=== PATIENT | male | born 1940 | race African-American/Black ===

== ENCOUNTER 2021-10-27 20:07 | Emergency (ER) | payer SELFPAY ==
[~2021-10-27] VITALS: Ht 175.3 cm; Wt 79.0 kg
[2021-10-27 22:28] LABS: BASOPHILS % 1.1 % (0.0-2.0); EOSINOPHILS % 4.6 % (0.0-5.0); HEMATOCRIT. 36.4 % (42.0-52.0); HEMOGLOBIN. 11.8 g/dL (14.0-18.0); LYMPHOCYTES % 28.4 % (20.0-50.0); MEAN CORPUSCULAR VOLUME 95.2 fL (80.0-94.0); MEAN PLATELET VOLUME 7.3 fl (7.4-10.4); MONOCYTES % 9.1 % (2.0-8.0); NEUTROPHILS % 56.8 % (40.0-76.0); PLATELET 263 x1000/uL (130-400); RED BLOOD CELL COUNT 3.82 mill/uL (4.7-6.1); RED CELL DISTRIBUTION WIDTH 13.8 % (11.6-14.6)
[2021-10-27 22:29] LABS: CHLORIDE 107 mEq/L (98-107)
[2021-10-27 22:40] LABS: ETHANOL BLOOD < 10 mg/dL
[2021-10-27 23:15] VITALS: BP 162/82
== END 2021-10-28 02:31 | disposition left against medical advice (07) ==
LOC: ER 20:07 → CANBEDREQ 10-28 06:38
DX: R55 Syncope and collapse (principal); G20 Parkinson's disease; I10 Essential (primary) hypertension; Z86.73 Personal history of transient ischemic attack (TIA), and cerebral infarction without residual deficits
CPT/HCPCS: 36415; 71045; 80053; 80320; 83880; 84484; 85025; 93005; 99285; G0480

== ENCOUNTER 2024-10-01 16:55 | Inpatient (IN) | payer MEDICARE, OTHER ==
[~2024-10-01] VITALS: Ht 165.1 cm; Wt 68.0 kg
[2024-10-01] VITALS (8 sets, daily range): BP systolic 113–124; BP diastolic 67–70; PULSE 80–96; RESP 16–27; TEMP 36.6; O2SAT 97–100
[~2024-10-01 16:55] MED LIST: ETOMIDATE 2MG/ML 10ML VIAL IV ONE
[2024-10-01] MEDS ORDERED: METHYLPREDNISOLONE 40MG/ML INJ IV ONE (17:15)
[2024-10-01 17:34] LABS: BASOPHILS % 0.5 % (0.0-2.0); EOSINOPHILS % 14.5 % (0.0-5.0); LYMPHOCYTES % 45.2 % (20.0-50.0); MEAN CORPUSCULAR HEMOGLOBIN 27.2 pg (28.0-32.0); MEAN CORPUSCULAR HGB CONC 31.1 g/dL (31.0-37.0); MEAN CORPUSCULAR VOLUME 87.3 fL (80.0-94.0); MEAN PLATELET VOLUME 6.8 fl (7.4-10.4); MONOCYTES % 4.5 % (2.0-8.0); NEUTROPHILS % 35.3 % (40.0-76.0); PLATELET 414 x1000/uL (130-400); RED BLOOD CELL COUNT 2.58 mill/uL (4.7-6.1); RED CELL DISTRIBUTION WIDTH 17.5 % (11.6-14.6); WHITE BLOOD COUNT 6.9 x1000/uL (4.5-11.0)
[2024-10-01 17:35] LABS: CHLORIDE 92 mEq/L (98-107); INR 1.1; POTASSIUM 5.3 mEq/L (3.5-5.1); PROTHROMBIN TIME 11.6 sec (9.6-11.0)
[2024-10-01 17:36] LABS: CARBON DIOXIDE 18 mEq/L (21-32)
[2024-10-01 17:37] LABS: CALCIUM 7.6 mg/dL (8.7-10.4)
[2024-10-01 17:41] LABS: CREATININE 1.4 mg/dL (0.6-1.3); GLUCOSE 109 mg/dL (70-105)
[2024-10-01 17:42] LABS: UREA NITROGEN BLOOD 37 mg/dL (9-23)
[2024-10-01 17:43] LABS: ALANINE AMINOTRANSFERASE 12 IU/L (10-49); ALBUMIN 2.9 g/dL (3.2-4.8); ASPARTATE AMINOTRANSFERASE 61 IU/L (<34); TROPONIN I HIGH SENSITIVITY 11 ng/L (3.0-53)
[2024-10-01 17:44] LABS: BILIRUBIN DIRECT 0.1 mg/dL (<=3.0); BILIRUBIN TOTAL 0.4 mg/dL (0.1-1.0); PROTEIN TOTAL 6.1 g/dL (6.0-8.3)
[2024-10-01 17:46] LABS: SODIUM 117 mEq/L (136-145)
[2024-10-01] MEDS: METHYLPREDNISOLONE SOD SUCC 125MG/2ML (ACT-O-VIAL) IV NR (17:48)
[2024-10-01] MEDS: VANCOMYCIN 1G PREMIX 200 ML IV STA (17:48)
[2024-10-01] MEDS: MAGNESIUM 2 G PREMIX 50 ML IV ONE (17:48)
[2024-10-01] MEDS: SODIUM CHLORIDE 0.9% 1,000 ML IV ONE ×2 (17:49→20:53)
[2024-10-01 17:52] LABS: HEMATOCRIT. 22.5 % (42.0-52.0)
[2024-10-01] MEDS: PROPOFOL 10MG/ML 100ML 100 ML IV SCH (17:54)
[2024-10-01] MEDS: IPRATROPIUM BROMIDE (0.02%) 0.5MG/2.5ML NEB HHN STA (18:14)
[2024-10-01] MEDS: ALBUTEROL (0.083%) 2.5MG/3ML NEB HHN STA (18:14)
[2024-10-01 18:33] LABS: BG BASE EXCESS -7.7 mmol/L (-2.0-3.0); BG CARBOXYHEMOGLOBIN 1.4 % (0.5-1.5); BG DEOXYHEMOGLOBIN 3.7 % (0.0-5.0); BG FRACTION INSPIRED OXYGEN 100; BG METHEMOGLOBIN 0.2 % (0.5-1.5); BG OXYGEN SATURATION 96.2 % (94.0-98.0); BG OXYHEMOGLOBIN 94.7 % (94.0-98.0); BG PCO2 30.8 mmHg (35.0-48.0); BG PO2 90.4 mmHg (83.0-108.0); BG SAMPLE SITE RIGHT BRACHIAL; BG VENT MODE VENT - AC
[2024-10-01 20:38] LABS: TROPONIN I HIGH SENSITIVITY 181 ng/L (3.0-53)
[2024-10-01] MEDS ORDERED: GUAIFENESIN 200MG/10ML SUGAR FREE UDC PO PRN (21:15)
[2024-10-01] MEDS ORDERED: SODIUM CHLORIDE 0.9% 1,000 ML IV SCH (21:15)
[2024-10-01] MEDS ORDERED: MAGNESIUM/ALUMINUM HYDROXIDE/SIMETHICONE 30ML UDC PO PRN (21:15)
[2024-10-01] MEDS ORDERED: DOCUSATE SODIUM 100MG CAPSULE PO PRN (21:15)
[2024-10-01] MEDS ORDERED: IPRATROPIUM/ALBUTEROL 0.5-3(2.5)MG/3ML NEB HHN PRN ×2 (21:15→21:30)
[2024-10-01 21:32] LABS: CLARITY URINE CLEAR (CLEAR); COLOR URINE YELLOW (YELLOW); GLUCOSE URINE NEGATIVE (NEGATIVE); KETONES URINE NEGATIVE (NEGATIVE); LEUKOCYTE ESTERASE URINE NEGATIVE (NEGATIVE); NITRITE URINE NEGATIVE (NEGATIVE); OCCULT BLOOD URINE NEGATIVE (NEGATIVE); PROTEIN URINE NEGATIVE (NEGATIVE); SPECIFIC GRAVITY URINE 1.014 (1.005-1.030)
[2024-10-01] MEDS ORDERED: MEMA5TAB16 PO (21:36)
[2024-10-01] MEDS ORDERED: NOREPINEPHRINE 8MG/250ML PMX 250 ML IV PRN (21:45)
[2024-10-01] MEDS ORDERED: PROPOFOL 10MG/ML 100ML 100 ML IV PRN (21:45)
[2024-10-01 21:46] LABS: *AMPHETAMINES SCREEN URINE NEGATIVE (NEGATIVE); *BARBITURATES SCREEN URINE NEGATIVE (NEGATIVE); *BENZODIAZEPINES SCREEN URINE NEGATIVE (NEGATIVE); *COCAINE SCREEN URINE NEGATIVE (NEGATIVE)
[2024-10-01 21:47] LABS: CANNABINOID URINE SCREEN NEGATIVE (NEGATIVE); ECSTASY MDMA SCREEN URINE NEGATIVE (NEGATIVE); METHADONE URINE SCREEN NEGATIVE (NEGATIVE); OPIATES URINE SCREEN NEGATIVE (NEGATIVE); PHENCYCLIDINE URINE SCREEN NEGATIVE (NEGATIVE)
[2024-10-01 22:03] LABS: PHOSPHORUS 3.6 mg/dL (2.5-4.9)
[2024-10-01] MEDS ORDERED: FENTANYL 2500MCG/250ML PMX 250 ML IV PRN (22:30)
[2024-10-01 22:48] LABS: IRON 18 ug/dL (65-175)
[2024-10-01 22:51] LABS: TOTAL IRON BINDING CAPACITY 215 ug/dl (250-425)
[2024-10-01] MEDS: FENTANYL 2500MCG/250ML PMX 250 ML IV PRN (23:58)
[2024-10-02] VITALS (86 sets, daily range): BP systolic 117–166; BP diastolic 58–81; PULSE 55–90; RESP 10–24; TEMP 36.4–36.7; O2SAT 97–100
[2024-10-02 00:18] LABS: HEMATOCRIT 24.6 % (42.0-52.0)
[2024-10-02] MEDS: PANTOPRAZOLE SODIUM 40 MG/VIAL IV SCH (00:18)
[2024-10-02] MEDS: METHYLPREDNISOLONE SOD SUCC 40MG/ML (ACT-O-VIAL) IV SCH (00:18)
[2024-10-02] MEDS: CARBIDOPA/LEVODOPA 25/100MG TABLET GT SCH (00:19)
[2024-10-02] MEDS: VANCOMYCIN 500MG PREMIX 100 ML IV NR (00:19)
[2024-10-02] MEDS: SODIUM ZIRCONIUM CYCLOSILICATE 10GM/PACKET GT NR (00:19)
[2024-10-02] MEDS: AZTREONAM 2 GM in DEXT 5% WATER 100 ML IV SCH ×2 (00:19→13:13)
[2024-10-02 00:28] LABS: CREATINE KINASE 782 IU/L (46-171)
[2024-10-02 00:52] LABS: BG BASE EXCESS -6.8 mmol/L (-2.0-3.0); BG CARBOXYHEMOGLOBIN 0.3 % (0.5-1.5); BG DEOXYHEMOGLOBIN 0.7 % (0.0-5.0); BG FRACTION INSPIRED OXYGEN 50; BG HCO3 ACT 16.1 mmol/L (21.0-28.0); BG METHEMOGLOBIN 0.2 % (0.5-1.5); BG OXYGEN SATURATION 99.3 % (94.0-98.0); BG OXYHEMOGLOBIN 98.8 % (94.0-98.0); BG PCO2 23.8 mmHg (35.0-48.0); BG PH 7.449 (7.350-7.450); BG SAMPLE SITE RIGHT RADIAL; BG TOTAL HEMOGLOBIN 8.1 g/dL (13.5-17.5); BG VENT MODE VENT - APRV
[2024-10-02 01:12] LABS: SODIUM 118 mEq/L (136-145); TROPONIN I HIGH SENSITIVITY 256 ng/L (3.0-53)
[2024-10-02] MEDS: PROPOFOL 10MG/ML 100ML 100 ML IV PRN (02:20)
[2024-10-02] MEDS: IPRATROPIUM/ALBUTEROL 0.5-3(2.5)MG/3ML NEB HHN SCH (02:23)
[2024-10-02 03:09] LABS: SODIUM URINE RANDOM 30 mEq/L
[2024-10-02 03:16] LABS: *AMPHETAMINES SCREEN URINE NEGATIVE (NEGATIVE); *BARBITURATES SCREEN URINE NEGATIVE (NEGATIVE); *BENZODIAZEPINES SCREEN URINE NEGATIVE (NEGATIVE); *COCAINE SCREEN URINE NEGATIVE (NEGATIVE); CANNABINOID URINE SCREEN NEGATIVE (NEGATIVE); ECSTASY MDMA SCREEN URINE NEGATIVE (NEGATIVE); METHADONE URINE SCREEN NEGATIVE (NEGATIVE); OPIATES URINE SCREEN NEGATIVE (NEGATIVE); PHENCYCLIDINE URINE SCREEN NEGATIVE (NEGATIVE)
[2024-10-02 04:47] LABS: OSMOLALITY URINE 336 mOsm/kg (500-850)
[2024-10-02] MEDS: SODIUM CHLORIDE 0.9% 1,000 ML IV SCH (05:13)
[2024-10-02 05:45] LABS: CHLORIDE 92 mEq/L (98-107); POTASSIUM 5.4 mEq/L (3.5-5.1)
[2024-10-02 05:46] LABS: CALCIUM 7.7 mg/dL (8.7-10.4); CARBON DIOXIDE 17 mEq/L (21-32)
[2024-10-02 05:51] LABS: CREATINE KINASE 784 IU/L (46-171); CREATININE 1.2 mg/dL (0.6-1.3); GLUCOSE 171 mg/dL (70-105); TRIGLYCERIDE 71 mg/dL (0-150); UREA NITROGEN BLOOD 37 mg/dL (9-23)
[2024-10-02 05:52] LABS: LDL CHOLESTEROL 45 mg/dL (5-100); THYROID STIMULATING HORMONE 0.77 uIU/mL (0.55-4.78)
[2024-10-02 05:53] LABS: CHOLESTEROL 92 mg/dL (<200); HDL CHOLESTEROL 26 mg/dL (>55)
[2024-10-02 06:01] LABS: TROPONIN I HIGH SENSITIVITY 176 ng/L (3.0-53)
[2024-10-02 06:38] LABS: BASOPHILS % 0.7 % (0.0-2.0); EOSINOPHILS % 1.3 % (0.0-5.0); HEMATOCRIT. 26.5 % (42.0-52.0); HEMOGLOBIN. 8.6 g/dL (14.0-18.0); LYMPHOCYTES % 12.7 % (20.0-50.0); MEAN CORPUSCULAR HGB CONC 32.5 g/dL (31.0-37.0); MEAN CORPUSCULAR VOLUME 86.2 fL (80.0-94.0); MEAN PLATELET VOLUME 7.8 fl (7.4-10.4); MONOCYTES % 1.4 % (2.0-8.0); NEUTROPHILS % 83.9 % (40.0-76.0); PLATELET 245 x1000/uL (130-400); RED BLOOD CELL COUNT 3.08 mill/uL (4.7-6.1); RED CELL DISTRIBUTION WIDTH 16.8 % (11.6-14.6); WHITE BLOOD COUNT 4.3 x1000/uL (4.5-11.0)
[2024-10-02] MEDS: DONEPEZIL HCL 10MG TABLET GT SCH (09:22)
[2024-10-02] MEDS: ENOXAPARIN 30MG/0.3ML SYR SUBCUT SCH (09:22)
[2024-10-02] MEDS: AZITHROMYCIN 500MG/250ML 250 ML IV SCH (09:23)
[2024-10-02] MEDS: ASPIRIN 81MG TABLET GT SCH (09:23)
[2024-10-02] MEDS: SODIUM CHLORIDE 1000MG TABLET GT SCH (09:23)
[2024-10-02] MEDS ORDERED: BLOOD SUGAR DIAGNOSTIC STRIP TEST SCH (11:00)
[2024-10-02] MEDS ORDERED: DEXTROSE 50% WATER 50ML SYRINGE IV PRN ×2 (11:00)
[2024-10-02] MEDS ORDERED: INSULIN REGULAR 100U/100ML PMX 100 ML IV SCH (11:00)
[2024-10-02] MEDS: SODIUM ZIRCONIUM CYCLOSILICATE 10GM/PACKET PO NR (11:25)
[2024-10-02] MEDS: CALCIUM CHLORIDE 1GM/10ML SYR IV NR (11:26)
[2024-10-02] MEDS: SODIUM BICARBONATE 8.4% 50MEQ/50ML SYR IV NR (11:26)
[2024-10-02] MEDS: IRON SUCROSE COMPLEX 100 MG/5 ML ML IV SCH (11:26)
[2024-10-02 12:07] LABS: BG BASE EXCESS -6.3 mmol/L (-2.0-3.0); BG CARBOXYHEMOGLOBIN 0.6 % (0.5-1.5); BG DEOXYHEMOGLOBIN 0.9 % (0.0-5.0); BG FRACTION INSPIRED OXYGEN 40; BG HCO3 ACT 18.2 mmol/L (21.0-28.0); BG METHEMOGLOBIN 0.2 % (0.5-1.5); BG OXYGEN SATURATION 99.1 % (94.0-98.0); BG OXYHEMOGLOBIN 98.3 % (94.0-98.0); BG PCO2 31.8 mmHg (35.0-48.0); BG PH 7.375 (7.350-7.450); BG SAMPLE SITE RIGHT RADIAL; BG TOTAL HEMOGLOBIN 8.6 g/dL (13.5-17.5); BG VENT MODE VENT - AC
[2024-10-02 16:05] LABS: CHLORIDE 96 mEq/L (98-107); SODIUM 121 mEq/L (136-145)
[2024-10-02 16:06] LABS: CARBON DIOXIDE 19 mEq/L (21-32)
[2024-10-02 16:07] LABS: CALCIUM 8.2 mg/dL (8.7-10.4)
[2024-10-02 16:11] LABS: CREATININE 1.3 mg/dL (0.6-1.3); GLUCOSE 145 mg/dL (70-105)
[2024-10-02 16:12] LABS: UREA NITROGEN BLOOD 43 mg/dL (9-23)
[2024-10-02] MEDS ORDERED: MORPHINE SULFATE 2 MG/ML INJ (NOT FOR IM USE) IV PRN (17:45)
[2024-10-02] MEDS ORDERED: NALOXONE HCL 0.4MG/ML VIAL IV PRN (18:30)
[2024-10-02 20:20] LABS: SODIUM URINE RANDOM < 10 mEq/L
[2024-10-02 20:31] LABS: OSMOLALITY URINE 240 mOsm/kg (500-850)
[2024-10-02] MEDS: VANCOMYCIN 1GM/200ML PMX (BAXTER) IV SCH (21:17)
[2024-10-02] MEDS: ATORVASTATIN CALCIUM 40MG TABLET GT SCH (21:18)
[2024-10-02] MEDS: METRONIDAZOLE 500MG TABLET PO SCH (21:18)
[2024-10-03] VITALS (60 sets, daily range): BP systolic 118–177; BP diastolic 60–99; PULSE 63–99; RESP 13–32; TEMP 36.1–37.4; O2SAT 97–100
[2024-10-03] MEDS: CLONIDINE 0.1MG TABLET PO PRN (05:23)
[2024-10-03 06:00] LABS: CHLORIDE 98 mEq/L (98-107); POTASSIUM 4.9 mEq/L (3.5-5.1); SODIUM 125 mEq/L (136-145)
[2024-10-03 06:01] LABS: CALCIUM 8.2 mg/dL (8.7-10.4); CARBON DIOXIDE 19 mEq/L (21-32)
[2024-10-03 06:05] LABS: URIC ACID 4.5 mg/dL (3.7-9.2)
[2024-10-03 06:06] LABS: CREATININE 1.3 mg/dL (0.6-1.3); GLUCOSE 158 mg/dL (70-105); TRIGLYCERIDE 57 mg/dL (0-150); UREA NITROGEN BLOOD 49 mg/dL (9-23)
[2024-10-03 06:08] LABS: ALBUMIN 2.9 g/dL (3.2-4.8); PREALBUMIN 6.2 mg/dl (10.0-40.0); T4 FREE 0.81 ng/dL (0.89-1.76)
[2024-10-03 06:09] LABS: HEMATOCRIT. 23.2 % (42.0-52.0); HEMOGLOBIN. 7.6 g/dL (14.0-18.0); MEAN CORPUSCULAR HEMOGLOBIN 27.8 pg (28.0-32.0); MEAN CORPUSCULAR HGB CONC 32.8 g/dL (31.0-37.0); MEAN CORPUSCULAR VOLUME 84.8 fL (80.0-94.0); MEAN PLATELET VOLUME 7.3 fl (7.4-10.4); PLATELET 294 x1000/uL (130-400); RED BLOOD CELL COUNT 2.73 mill/uL (4.7-6.1); RED CELL DISTRIBUTION WIDTH 16.7 % (11.6-14.6); WHITE BLOOD COUNT 6.3 x1000/uL (4.5-11.0)
[2024-10-03 06:21] LABS: DIFFERENTIAL COMMENT 1
[2024-10-03 07:50] LABS: SODIUM 118 mEq/L (136-145)
[2024-10-03] MEDS: AMLODIPINE 5MG TABLET PO SCH (09:24)
[2024-10-03 10:42] LABS: ANISOCYTOSIS 1+; NUCLEATED RED BLOOD CELLS 1 /100 WBC; PLATELET ESTIMATE NORMAL
[2024-10-03 16:43] LABS: BG BASE EXCESS -6.1 mmol/L (-2.0-3.0); BG CARBOXYHEMOGLOBIN 0.3 % (0.5-1.5); BG DEOXYHEMOGLOBIN 0.4 % (0.0-5.0); BG FRACTION INSPIRED OXYGEN 40; BG HCO3 ACT 16.4 mmol/L (21.0-28.0); BG METHEMOGLOBIN 0.1 % (0.5-1.5); BG OXYGEN SATURATION 99.6 % (94.0-98.0); BG OXYHEMOGLOBIN 99.2 % (94.0-98.0); BG PCO2 22.8 mmHg (35.0-48.0); BG PH 7.474 (7.350-7.450); BG PO2 146.2 mmHg (83.0-108.0); BG SAMPLE SITE LEFT RADIAL; BG TOTAL HEMOGLOBIN 8.8 g/dL (13.5-17.5); BG VENT MODE VENT - SIMV
[2024-10-03] MEDS: VANCOMYCIN 1.25GM/250ML IV SCH (17:21)
[2024-10-03 20:30] LABS: BG BASE EXCESS -3.9 mmol/L (-2.0-3.0); BG CARBOXYHEMOGLOBIN 1.1 % (0.5-1.5); BG DEOXYHEMOGLOBIN 0.5 % (0.0-5.0); BG FRACTION INSPIRED OXYGEN 40; BG HCO3 ACT 18.3 mmol/L (21.0-28.0); BG METHEMOGLOBIN 0.2 % (0.5-1.5); BG OXYGEN SATURATION 99.5 % (94.0-98.0); BG OXYHEMOGLOBIN 98.2 % (94.0-98.0); BG PCO2 23.6 mmHg (35.0-48.0); BG PH 7.508 (7.350-7.450); BG SAMPLE SITE RIGHT RADIAL; BG TOTAL HEMOGLOBIN 8.3 g/dL (13.5-17.5); BG VENT MODE VENT - CPAP
[2024-10-03] MEDS: SODIUM CHLORIDE 3% 200 ML IV NR (20:52)
[2024-10-03 23:31] LABS: CHLORIDE 103 mEq/L (98-107); POTASSIUM 5.3 mEq/L (3.5-5.1); SODIUM 130 mEq/L (136-145)
[2024-10-03 23:32] LABS: CARBON DIOXIDE 21 mEq/L (21-32)
[2024-10-03 23:37] LABS: CREATININE 1.1 mg/dL (0.6-1.3); GLUCOSE 152 mg/dL (70-105)
[2024-10-03 23:38] LABS: UREA NITROGEN BLOOD 47 mg/dL (9-23)
[2024-10-04] VITALS (63 sets, daily range): BP systolic 127–177; BP diastolic 69–114; PULSE 59–86; RESP 10–22; TEMP 36.2–37.7; O2SAT 97–100
[2024-10-04 05:49] LABS: HEMATOCRIT. 28.4 % (42.0-52.0); HEMOGLOBIN. 9.1 g/dL (14.0-18.0); MEAN CORPUSCULAR HEMOGLOBIN 27.7 pg (28.0-32.0); MEAN CORPUSCULAR HGB CONC 32.1 g/dL (31.0-37.0); MEAN CORPUSCULAR VOLUME 86.1 fL (80.0-94.0); MEAN PLATELET VOLUME 7.6 fl (7.4-10.4); PLATELET 197 x1000/uL (130-400); RED CELL DISTRIBUTION WIDTH 16.9 % (11.6-14.6); WHITE BLOOD COUNT 7.3 x1000/uL (4.5-11.0)
[2024-10-04 05:56] LABS: CHLORIDE 107 mEq/L (98-107); POTASSIUM 5.4 mEq/L (3.5-5.1); SODIUM 133 mEq/L (136-145)
[2024-10-04 05:57] LABS: CALCIUM 8.4 mg/dL (8.7-10.4); CARBON DIOXIDE 20 mEq/L (21-32)
[2024-10-04 06:02] LABS: GLUCOSE 146 mg/dL (70-105); UREA NITROGEN BLOOD 41 mg/dL (9-23)
[2024-10-04 06:05] LABS: PHOSPHORUS 2.9 mg/dL (2.5-4.9)
[2024-10-04 06:41] LABS: DIFFERENTIAL COMMENT 1
[2024-10-04 10:16] LABS: ANISOCYTOSIS 1+; HYPOCHROMASIA 1+; PLATELET ESTIMATE NORMAL; TARGET CELLS 1+
[2024-10-04] MEDS: CLONIDINE 0.1MG TABLET PO SCH (10:22)
[2024-10-04 12:35] LABS: CHLORIDE 105 mEq/L (98-107); POTASSIUM 4.5 mEq/L (3.5-5.1); SODIUM 133 mEq/L (136-145)
[2024-10-04 12:36] LABS: CARBON DIOXIDE 21 mEq/L (21-32)
[2024-10-04 12:37] LABS: CALCIUM 8.4 mg/dL (8.7-10.4)
[2024-10-04 12:41] LABS: CREATININE 0.9 mg/dL (0.6-1.3)
[2024-10-04 12:42] LABS: GLUCOSE 179 mg/dL (70-105); UREA NITROGEN BLOOD 41 mg/dL (9-23)
[2024-10-04] MEDS ORDERED: CLINDAMYCIN 600 MG in DEXTROSE 5% WATER 50 ML IV SCH (12:45)
[2024-10-04] MEDS: CLINDAMYCIN 600MG PREMIX 50 ML IV SCH (14:13)
[2024-10-04] MEDS ORDERED: VANCOMYCIN 1.5GM PMX (XELLIA) 300 ML IV SCH (15:00)
[2024-10-04 18:53] LABS: CHLORIDE 105 mEq/L (98-107); POTASSIUM 4.6 mEq/L (3.5-5.1); SODIUM 134 mEq/L (136-145)
[2024-10-04 18:54] LABS: CALCIUM 8.2 mg/dL (8.7-10.4); CARBON DIOXIDE 21 mEq/L (21-32)
[2024-10-04 18:59] LABS: CREATININE 0.8 mg/dL (0.6-1.3); GLUCOSE 142 mg/dL (70-105); UREA NITROGEN BLOOD 41 mg/dL (9-23)
[2024-10-04] MEDS ORDERED: NALOXONE HCL 0.4MG/ML VIAL IV PRN (21:45)
[2024-10-04] MEDS: MORPHINE SULFATE 2 MG/ML INJ (NOT FOR IM USE) IV PRN (22:16)
[2024-10-04] MEDS: AMLODIPINE 5MG TABLET PO NR (22:17)
[2024-10-05] VITALS (88 sets, daily range): BP systolic 108–185; BP diastolic 59–111; PULSE 54–80; RESP 10–23; TEMP 36.7–37.2; O2SAT 99–100
[2024-10-05] MEDS ORDERED: NICARDIPINE 50 MG in SODIUM CHLORIDE 0.9% 230 ML IV PRN (01:30)
[2024-10-05] MEDS: NICARDIPINE 40 MG/200 ML PREMIX 200 ML IV PRN (01:42)
[2024-10-05] MEDS: LISINOPRIL 20MG TABLET PO SCH (07:58)
[2024-10-05 09:36] LABS: BG BASE EXCESS -2.5 mmol/L (-2.0-3.0); BG CARBOXYHEMOGLOBIN 0.8 % (0.5-1.5); BG DEOXYHEMOGLOBIN 0.5 % (0.0-5.0); BG FRACTION INSPIRED OXYGEN 40; BG HCO3 ACT 20.1 mmol/L (21.0-28.0); BG METHEMOGLOBIN 0.3 % (0.5-1.5); BG OXYGEN SATURATION 99.5 % (94.0-98.0); BG OXYHEMOGLOBIN 98.4 % (94.0-98.0); BG PCO2 26.8 mmHg (35.0-48.0); BG PH 7.494 (7.350-7.450); BG PO2 136.2 mmHg (83.0-108.0); BG SAMPLE SITE RIGHT RADIAL; BG TOTAL HEMOGLOBIN 8.2 g/dL (13.5-17.5); BG VENT MODE VENT - SIMV
[2024-10-05] MEDS: AMLODIPINE 10MG TABLET PO SCH (09:36)
[2024-10-05 12:51] LABS: HEMOGLOBIN 8.5 g/dL (14.0-18.0); MEAN CORPUSCULAR HEMOGLOBIN 27.7 pg (28.0-32.0); MEAN CORPUSCULAR HGB CONC 32.5 g/dL (31.0-37.0); MEAN CORPUSCULAR VOLUME 85.4 fL (80.0-94.0); PLATELET 298 x1000/uL (130-400); RED BLOOD CELL COUNT 3.05 mill/uL (4.7-6.1); RED CELL DISTRIBUTION WIDTH 16.9 % (11.6-14.6); WHITE BLOOD COUNT 8.2 x1000/uL (4.5-11.0)
[2024-10-05 13:00] LABS: CHLORIDE 106 mEq/L (98-107); SODIUM 134 mEq/L (136-145)
[2024-10-05 13:01] LABS: CALCIUM 8.2 mg/dL (8.7-10.4); CARBON DIOXIDE 22 mEq/L (21-32)
[2024-10-05 13:06] LABS: CREATININE 0.8 mg/dL (0.6-1.3); GLUCOSE 118 mg/dL (70-105); UREA NITROGEN BLOOD 43 mg/dL (9-23)
[2024-10-05] MEDS: SODIUM BICARBONATE 650MG TABLET PO NR (16:35)
[2024-10-05] MEDS: LIPASE/PROTEASE/AMYLASE 4,200/14,200/24,600 UNITS CAP DR PO NR (16:36)
[2024-10-05 17:14] LABS: BG BASE EXCESS 1.9 mmol/L (-2.0-3.0); BG CARBOXYHEMOGLOBIN 0.7 % (0.5-1.5); BG DEOXYHEMOGLOBIN 0.7 % (0.0-5.0); BG FRACTION INSPIRED OXYGEN 40; BG HCO3 ACT 23.8 mmol/L (21.0-28.0); BG METHEMOGLOBIN 0.2 % (0.5-1.5); BG OXYGEN SATURATION 99.3 % (94.0-98.0); BG OXYHEMOGLOBIN 98.4 % (94.0-98.0); BG PH 7.548 (7.350-7.450); BG PO2 146.5 mmHg (83.0-108.0); BG SAMPLE SITE RIGHT RADIAL; BG TOTAL HEMOGLOBIN 9.2 g/dL (13.5-17.5); BG VENT MODE VENT - CPAP
[2024-10-06] VITALS (59 sets, daily range): BP systolic 108–162; BP diastolic 60–86; PULSE 63–76; RESP 12–20; TEMP 36.7–37.4; O2SAT 99–100
[2024-10-06 05:55] LABS: BASOPHILS % 0.2 % (0.0-2.0); HEMATOCRIT. 26.9 % (42.0-52.0); HEMOGLOBIN. 8.6 g/dL (14.0-18.0); LYMPHOCYTES % 16.2 % (20.0-50.0); MEAN CORPUSCULAR HEMOGLOBIN 27.4 pg (28.0-32.0); MEAN CORPUSCULAR HGB CONC 31.8 g/dL (31.0-37.0); MEAN CORPUSCULAR VOLUME 86.4 fL (80.0-94.0); MONOCYTES % 5.2 % (2.0-8.0); NEUTROPHILS % 78.4 % (40.0-76.0); RED BLOOD CELL COUNT 3.12 mill/uL (4.7-6.1); RED CELL DISTRIBUTION WIDTH 17.6 % (11.6-14.6); WHITE BLOOD COUNT 10.3 x1000/uL (4.5-11.0)
[2024-10-06 06:22] LABS: CHLORIDE 106 mEq/L (98-107); POTASSIUM 5.1 mEq/L (3.5-5.1); SODIUM 135 mEq/L (136-145)
[2024-10-06 06:23] LABS: CALCIUM 8.5 mg/dL (8.7-10.4); CARBON DIOXIDE 21 mEq/L (21-32)
[2024-10-06] MEDS: HYDRALAZINE 20MG/ML VIAL IV PRN (06:27)
[2024-10-06 06:28] LABS: CREATININE 0.8 mg/dL (0.6-1.3); GLUCOSE 176 mg/dL (70-105)
[2024-10-06 06:30] LABS: UREA NITROGEN BLOOD 49 mg/dL (9-23)
[2024-10-06 06:32] LABS: PHOSPHORUS 2.7 mg/dL (2.5-4.9)
[2024-10-06 07:07] LABS: DIFFERENTIAL COMMENT 1
[2024-10-06 09:31] LABS: PLATELET 309 x1000/uL (130-400)
[2024-10-06 09:32] LABS: ADD RBC MORPHOLOGY YES
[2024-10-06 09:33] LABS: GIANT PLATELETS FEW; PLATELET ESTIMATE NORMAL
[2024-10-06 09:34] LABS: OVALOCYTES 1+
[2024-10-06 10:13] LABS: SODIUM URINE RANDOM 57 mEq/L
[2024-10-06 10:23] LABS: OSMOLALITY URINE 688 mOsm/kg (500-850)
[2024-10-06 11:42] LABS: BG BASE EXCESS -0.5 mmol/L (-2.0-3.0); BG CARBOXYHEMOGLOBIN 0.8 % (0.5-1.5); BG DEOXYHEMOGLOBIN 3.1 % (0.0-5.0); BG FRACTION INSPIRED OXYGEN 40; BG HCO3 ACT 22.1 mmol/L (21.0-28.0); BG METHEMOGLOBIN 0.1 % (0.5-1.5); BG OXYGEN SATURATION 96.9 % (94.0-98.0); BG PCO2 28.8 mmHg (35.0-48.0); BG PH 7.503 (7.350-7.450); BG SAMPLE SITE RIGHT RADIAL; BG TOTAL HEMOGLOBIN 9.1 g/dL (13.5-17.5); BG VENT MODE VENT - CPAP
[2024-10-07] VITALS (81 sets, daily range): BP systolic 103–140; BP diastolic 47–105; PULSE 60–80; RESP 12–23; TEMP 36.9–37.1; O2SAT 100
[2024-10-07 04:35] LABS: CHLORIDE 108 mEq/L (98-107); POTASSIUM 4.4 mEq/L (3.5-5.1); SODIUM 138 mEq/L (136-145)
[2024-10-07 04:36] LABS: CALCIUM 8.1 mg/dL (8.7-10.4); CARBON DIOXIDE 23 mEq/L (21-32)
[2024-10-07 04:41] LABS: AMMONIA < 17 uMol/L (<32); CREATININE 0.8 mg/dL (0.6-1.3); GLUCOSE 145 mg/dL (70-105); UREA NITROGEN BLOOD 48 mg/dL (9-23)
[2024-10-07 04:43] LABS: PHOSPHORUS 2.5 mg/dL (2.5-4.9)
[2024-10-07 06:05] LABS: BASOPHILS % 1.8 % (0.0-2.0); EOSINOPHILS % 0.5 % (0.0-5.0); HEMATOCRIT. 24.5 % (42.0-52.0); LYMPHOCYTES % 24.7 % (20.0-50.0); MEAN CORPUSCULAR HEMOGLOBIN 27.8 pg (28.0-32.0); MEAN CORPUSCULAR HGB CONC 32.6 g/dL (31.0-37.0); MEAN CORPUSCULAR VOLUME 85.4 fL (80.0-94.0); MEAN PLATELET VOLUME 7.5 fl (7.4-10.4); MONOCYTES % 8.9 % (2.0-8.0); NEUTROPHILS % 64.1 % (40.0-76.0); PLATELET 298 x1000/uL (130-400); RED BLOOD CELL COUNT 2.87 mill/uL (4.7-6.1); RED CELL DISTRIBUTION WIDTH 17.5 % (11.6-14.6)
[2024-10-07] MEDS: METHYLPREDNISOLONE SOD SUCC 40MG/ML (ACT-O-VIAL) IV SCH (09:00)
[2024-10-07] MEDS ORDERED: NON FORMULARY MED XX SCH (10:00)
[2024-10-07] MEDS: IRON SUCROSE COMPLEX 100 MG/5 ML ML IV NR (10:34)
[2024-10-07 15:27] LABS: BG BASE EXCESS -1.9 mmol/L (-2.0-3.0); BG CARBOXYHEMOGLOBIN 0.6 % (0.5-1.5); BG DEOXYHEMOGLOBIN 1.5 % (0.0-5.0); BG FRACTION INSPIRED OXYGEN 40; BG HCO3 ACT 20.8 mmol/L (21.0-28.0); BG METHEMOGLOBIN 0.3 % (0.5-1.5); BG OXYGEN SATURATION 98.5 % (94.0-98.0); BG OXYHEMOGLOBIN 97.6 % (94.0-98.0); BG PCO2 27.9 mmHg (35.0-48.0); BG PO2 108.9 mmHg (83.0-108.0); BG SAMPLE SITE RIGHT RADIAL; BG TOTAL HEMOGLOBIN 8.6 g/dL (13.5-17.5); BG VENT MODE VENT - CPAP
[2024-10-07] MEDS ORDERED: SODIUM CHLORIDE 3% FOR INH 4ML NEB INH NR (19:00)
[2024-10-07 20:14] LABS: BG BASE EXCESS -1.5 mmol/L (-2.0-3.0); BG CARBOXYHEMOGLOBIN 0.3 % (0.5-1.5); BG DEOXYHEMOGLOBIN 1.3 % (0.0-5.0); BG FRACTION INSPIRED OXYGEN 40; BG HCO3 ACT 21.2 mmol/L (21.0-28.0); BG OXYGEN SATURATION 98.7 % (94.0-98.0); BG OXYHEMOGLOBIN 98.4 % (94.0-98.0); BG PCO2 28.4 mmHg (35.0-48.0); BG PH 7.491 (7.350-7.450); BG PO2 106.7 mmHg (83.0-108.0); BG SAMPLE SITE RIGHT RADIAL; BG TOTAL HEMOGLOBIN 8.9 g/dL (13.5-17.5); BG VENT MODE PC/AC
[2024-10-08] VITALS (48 sets, daily range): BP systolic 104–147; BP diastolic 34–75; PULSE 60–77; RESP 0–25; TEMP 36.9–37.7; O2SAT 100
[2024-10-08 06:06] LABS: BASOPHILS % 0.2 % (0.0-2.0); EOSINOPHILS % 2.6 % (0.0-5.0); HEMATOCRIT. 23.5 % (42.0-52.0); HEMOGLOBIN. 7.6 g/dL (14.0-18.0); LYMPHOCYTES % 19.4 % (20.0-50.0); MEAN CORPUSCULAR HEMOGLOBIN 27.7 pg (28.0-32.0); MEAN CORPUSCULAR HGB CONC 32.2 g/dL (31.0-37.0); MEAN CORPUSCULAR VOLUME 86.2 fL (80.0-94.0); MEAN PLATELET VOLUME 7.7 fl (7.4-10.4); MONOCYTES % 11.5 % (2.0-8.0); NEUTROPHILS % 66.3 % (40.0-76.0); PLATELET 329 x1000/uL (130-400); RED BLOOD CELL COUNT 2.73 mill/uL (4.7-6.1); RED CELL DISTRIBUTION WIDTH 17.7 % (11.6-14.6); WHITE BLOOD COUNT 7.2 x1000/uL (4.5-11.0)
[2024-10-08 06:25] LABS: CHLORIDE 108 mEq/L (98-107); POTASSIUM 4.7 mEq/L (3.5-5.1); SODIUM 140 mEq/L (136-145)
[2024-10-08 06:26] LABS: CARBON DIOXIDE 24 mEq/L (21-32)
[2024-10-08 06:31] LABS: CREATININE 0.7 mg/dL (0.6-1.3); GLUCOSE 101 mg/dL (70-105); UREA NITROGEN BLOOD 43 mg/dL (9-23)
[2024-10-08 06:33] LABS: T4 FREE 0.98 ng/dL (0.89-1.76); THYROID STIMULATING HORMONE 2.17 uIU/mL (0.55-4.78)
[2024-10-08] MEDS: FERROUS SULFATE 300MG/5ML UDC GT SCH (08:27)
[2024-10-08] MEDS: ASCORBIC ACID 250 MG TABLET GT SCH (08:28)
[2024-10-08 11:33] LABS: FOLIC ACID (FOLATE) SERUM 11.26 ng/mL (>5.38); VITAMIN B12 SERUM 1680 pg/mL (211-911)
[2024-10-09] VITALS (81 sets, daily range): BP systolic 77–169; BP diastolic 37–147; PULSE 58–78; RESP 7–26; TEMP 36.3–36.9; O2SAT 98–100
[2024-10-09 05:49] LABS: DIFFERENTIAL COMMENT 0; EOSINOPHILS % 1.2 % (0.0-5.0); LYMPHOCYTES % 16.7 % (20.0-50.0); MEAN CORPUSCULAR HEMOGLOBIN 28.4 pg (28.0-32.0); MEAN CORPUSCULAR HGB CONC 32.6 g/dL (31.0-37.0); MEAN CORPUSCULAR VOLUME 87.2 fL (80.0-94.0); MEAN PLATELET VOLUME 7.8 fl (7.4-10.4); MONOCYTES % 8.1 % (2.0-8.0); PLATELET 313 x1000/uL (130-400); RED BLOOD CELL COUNT 2.41 mill/uL (4.7-6.1); RED CELL DISTRIBUTION WIDTH 18.9 % (11.6-14.6); WHITE BLOOD COUNT 9.2 x1000/uL (4.5-11.0)
[2024-10-09 06:01] LABS: CARBON DIOXIDE 24 mEq/L (21-32); CHLORIDE 109 mEq/L (98-107); POTASSIUM 4.5 mEq/L (3.5-5.1); SODIUM 140 mEq/L (136-145)
[2024-10-09 06:02] LABS: CALCIUM 7.7 mg/dL (8.7-10.4)
[2024-10-09 06:06] LABS: HEMOGLOBIN. 6.8 g/dL (14.0-18.0)
[2024-10-09 06:07] LABS: CREATININE 0.7 mg/dL (0.6-1.3); GLUCOSE 121 mg/dL (70-105); UREA NITROGEN BLOOD 43 mg/dL (9-23)
[2024-10-09 09:10] LABS: BG BASE EXCESS -2.3 mmol/L (-2.0-3.0); BG CARBOXYHEMOGLOBIN 0.8 % (0.5-1.5); BG DEOXYHEMOGLOBIN 0.3 % (0.0-5.0); BG FRACTION INSPIRED OXYGEN 50; BG HCO3 ACT 20.1 mmol/L (21.0-28.0); BG METHEMOGLOBIN 0.3 % (0.5-1.5); BG OXYGEN SATURATION 99.7 % (94.0-98.0); BG OXYHEMOGLOBIN 98.6 % (94.0-98.0); BG PCO2 25.6 mmHg (35.0-48.0); BG PH 7.513 (7.350-7.450); BG PO2 210.1 mmHg (83.0-108.0); BG SAMPLE SITE RIGHT BRACHIAL; BG TOTAL HEMOGLOBIN 7.5 g/dL (13.5-17.5); BG VENT MODE VENT - P/C
[2024-10-09 09:36] LABS: MEAN CORPUSCULAR HGB CONC 32.2 g/dL (31.0-37.0); PLATELET 327 x1000/uL (130-400); RED BLOOD CELL COUNT 2.28 mill/uL (4.7-6.1); RED CELL DISTRIBUTION WIDTH 18.9 % (11.6-14.6); WHITE BLOOD COUNT 8.5 x1000/uL (4.5-11.0)
[2024-10-09 10:07] LABS: HEMATOCRIT 19.9 % (42.0-52.0); HEMOGLOBIN 6.4 g/dL (14.0-18.0)
[2024-10-09 16:10] LABS: HEMATOCRIT 23.7 % (42.0-52.0); HEMOGLOBIN 7.5 g/dL (14.0-18.0)
[2024-10-10] VITALS (81 sets, daily range): BP systolic 89–140; BP diastolic 58–92; PULSE 59–90; RESP 10–28; TEMP 36.4–36.9474; O2SAT 95–100
[2024-10-10 05:44] LABS: BASOPHILS % 0.1 % (0.0-2.0); DIFFERENTIAL COMMENT 0; EOSINOPHILS % 0.7 % (0.0-5.0); LYMPHOCYTES % 18.4 % (20.0-50.0); MEAN CORPUSCULAR HGB CONC 32.2 g/dL (31.0-37.0); MEAN CORPUSCULAR VOLUME 86.8 fL (80.0-94.0); MEAN PLATELET VOLUME 8.1 fl (7.4-10.4); MONOCYTES % 10.2 % (2.0-8.0); NEUTROPHILS % 70.6 % (40.0-76.0); PLATELET 264 x1000/uL (130-400); RED CELL DISTRIBUTION WIDTH 18.5 % (11.6-14.6); WHITE BLOOD COUNT 6.9 x1000/uL (4.5-11.0)
[2024-10-10 05:52] LABS: HEMOGLOBIN. 6.4 g/dL (14.0-18.0)
[2024-10-10 05:53] LABS: CALCIUM 7.8 mg/dL (8.7-10.4); CARBON DIOXIDE 23 mEq/L (21-32); CHLORIDE 110 mEq/L (98-107); POTASSIUM 4.4 mEq/L (3.5-5.1); SODIUM 142 mEq/L (136-145)
[2024-10-10 05:59] LABS: CREATININE 0.9 mg/dL (0.6-1.3); GLUCOSE 147 mg/dL (70-105); UREA NITROGEN BLOOD 58 mg/dL (9-23)
[2024-10-10 06:01] LABS: PHOSPHORUS 2.7 mg/dL (2.5-4.9)
[2024-10-10] MEDS: ENOXAPARIN 40MG/0.4ML SYR SUBCUT SCH (08:50)
[2024-10-10 15:00] LABS: HEMATOCRIT 25.5 % (42.0-52.0); HEMOGLOBIN 8.4 g/dL (14.0-18.0)
[2024-10-10 15:16] LABS: BILIRUBIN TOTAL 0.4 mg/dL (0.1-1.0)
[2024-10-10 15:34] LABS: INR 1.1; PROTHROMBIN TIME 11.3 sec (9.6-11.0)
[2024-10-10] MEDS: PANTOPRAZOLE SODIUM 40 MG/VIAL IV SCH (20:16)
[2024-10-10] MEDS: SUCRALFATE 1G TABLET PO SCH (20:16)
[2024-10-11] VITALS (83 sets, daily range): BP systolic 103–140; BP diastolic 53–76; PULSE 53–66; RESP 7–19; TEMP 36.7–36.9; O2SAT 92–100
[2024-10-11 06:03] LABS: BASOPHILS % 0.3 % (0.0-2.0); EOSINOPHILS % 0.2 % (0.0-5.0); HEMATOCRIT. 23.1 % (42.0-52.0); HEMOGLOBIN. 7.6 g/dL (14.0-18.0); LYMPHOCYTES % 17.5 % (20.0-50.0); MEAN CORPUSCULAR HEMOGLOBIN 28.3 pg (28.0-32.0); MEAN PLATELET VOLUME 8.3 fl (7.4-10.4); MONOCYTES % 9.2 % (2.0-8.0); NEUTROPHILS % 72.8 % (40.0-76.0); PLATELET 268 x1000/uL (130-400); RED BLOOD CELL COUNT 2.69 mill/uL (4.7-6.1); RED CELL DISTRIBUTION WIDTH 18.2 % (11.6-14.6); WHITE BLOOD COUNT 8.8 x1000/uL (4.5-11.0)
[2024-10-11 06:11] LABS: CHLORIDE 111 mEq/L (98-107); POTASSIUM 4.4 mEq/L (3.5-5.1); SODIUM 143 mEq/L (136-145)
[2024-10-11 06:12] LABS: CALCIUM 7.9 mg/dL (8.7-10.4); CARBON DIOXIDE 22 mEq/L (21-32)
[2024-10-11 06:17] LABS: CREATININE 0.8 mg/dL (0.6-1.3); GLUCOSE 86 mg/dL (70-105); UREA NITROGEN BLOOD 50 mg/dL (9-23)
[2024-10-11 06:19] LABS: PHOSPHORUS 2.5 mg/dL (2.5-4.9)
[2024-10-11] MEDS ORDERED: LORAZEPAM 2MG/ML UD SYRINGE IV PRN (09:30)
[2024-10-11] MEDS ORDERED: MORPHINE SULFATE/PF 1 MG/ML 100 MG in BAG 1 EACH IV PRN (09:30)
[2024-10-11] MEDS: MORPHINE SULFATE 250 MG in DEXT 5% WATER 250 ML IV PRN (12:06)
[2024-10-12] VITALS (62 sets, daily range): BP systolic 76–117; BP diastolic 50–71; PULSE 54–90; RESP 0–17; TEMP 35.7–37.1; O2SAT 96–100
[2024-10-12] MEDS: DEXT 5%/0.45% NACL 1000ML 1,000 ML IV SCH (21:30)
[2024-10-13] VITALS: BP 97/51; PULSE 60; RESP 16; TEMP 35.7; O2SAT 100
[2024-10-13 04:00] VITALS: BP 91/45; PULSE 78; RESP 16; TEMP 35.3; O2SAT 97
[2024-10-13 08:00] VITALS: BP 98/60; PULSE 70; RESP 12; TEMP 36.7; O2SAT 95
[2024-10-13] MEDS ORDERED: LORAZEPAM 2MG/ML UD SYRINGE IV PRN (08:00)
[2024-10-13 12:00] VITALS: BP 92/48; PULSE 70; RESP 14; TEMP 37.1; O2SAT 91
[2024-10-13 16:00] VITALS: BP 95/53; PULSE 74; RESP 14; TEMP 37.2; O2SAT 98
[2024-10-13 20:00] VITALS: BP 95/55; PULSE 78; RESP 18; TEMP 36.9; O2SAT 87
[2024-10-13] MEDS: LIDOCAINE HCL 1% 10 MG/ML 10ML VIAL ONE (20:17)
[2024-10-14] VITALS: BP 99/58; PULSE 84; RESP 18; TEMP 36.8; O2SAT 94
[2024-10-14 04:00] VITALS: BP 106/56; PULSE 79; RESP 17; TEMP 37.1; O2SAT 96
[2024-10-14 08:00] VITALS: BP 98/57; PULSE 88; RESP 18; TEMP 37; O2SAT 90
[2024-10-14 12:00] VITALS: BP 96/55; PULSE 80; RESP 18; TEMP 36.8; O2SAT 100
[2024-10-14 16:00] VITALS: BP 96/49; PULSE 85; RESP 18; TEMP 36.7; O2SAT 99
[2024-10-14 20:00] VITALS: BP 94/54; PULSE 80; RESP 17; TEMP 37; O2SAT 94
[2024-10-15] VITALS: BP 96/53; PULSE 83; RESP 18; TEMP 37.2; O2SAT 95
[2024-10-15 04:00] VITALS: BP 123/60; PULSE 83; RESP 19; TEMP 37.6; O2SAT 98
[2024-10-15 08:00] VITALS: BP 107/55; PULSE 86; RESP 18; TEMP 37; O2SAT 100
[2024-10-15 12:00] VITALS: BP 101/49; PULSE 76; RESP 18; TEMP 37; O2SAT 100
[2024-10-15 16:00] VITALS: BP 105/53; PULSE 86; RESP 18; TEMP 37.6; O2SAT 100
[2024-10-15] MEDS ORDERED: HYDROCODONE/ACETAMINOPHEN 5/325MG TABLET PO PRN (18:30)
[2024-10-15] MEDS ORDERED: NALOXONE HCL 0.4MG/ML VIAL IV PRN (18:30)
[2024-10-15 20:00] VITALS: BP 105/68; PULSE 99; RESP 18; TEMP 37.6; O2SAT 95
[2024-10-15] MEDS: GUAIFENESIN-DM 200MG-20MG/10ML UDC PO PRN (20:55)
[2024-10-15] MEDS ORDERED: GUAIFENESIN 600MG ER TABLET PO SCH (21:00)
[2024-10-16] VITALS: BP 108/69; PULSE 97; RESP 18; TEMP 37.7; O2SAT 97
[2024-10-16 04:00] VITALS: BP 104/65; PULSE 102; RESP 17; TEMP 37.8; O2SAT 95
[2024-10-16] MEDS: ACETAMINOPHEN 325MG TABLET PO PRN ×2 (04:46→21:47)
[2024-10-16 08:00] VITALS: BP 101/63; PULSE 89; RESP 18; TEMP 36.7
[2024-10-16] MEDS ORDERED: NALOXONE HCL 0.4MG/ML VIAL IV PRN (14:30)
[2024-10-16] MEDS ORDERED: LORAZEPAM 2MG/ML UD SYRINGE IV PRN (14:30)
[2024-10-16] MEDS ORDERED: MORPHINE SULFATE 2 MG/ML INJ (NOT FOR IM USE) IV PRN (14:30)
[2024-10-16 16:00] VITALS: BP 107/66; PULSE 58; RESP 18; TEMP 37.2; O2SAT 100
[2024-10-16 20:00] VITALS: BP 114/63; PULSE 93; RESP 20; TEMP 38.6; O2SAT 98
[2024-10-17] VITALS (7 sets, daily range): BP systolic 97–122; BP diastolic 47–72; PULSE 60–94; RESP 17–22; TEMP 36.3–38.8; O2SAT 96–100
[2024-10-18] VITALS: BP 121/72; PULSE 90; RESP 20; TEMP 37.2; O2SAT 94
[2024-10-18 04:00] VITALS: BP 110/59; PULSE 87; RESP 20; TEMP 36.4; O2SAT 95
[2024-10-18] MEDS ORDERED: MORPHINE SULFATE 4 MG/ML INJ (FOR IV/IM USE) IV PRN (04:29)
[2024-10-18 08:00] VITALS: BP 118/66; PULSE 96; RESP 18; TEMP 36.7; O2SAT 96
[2024-10-18 12:00] VITALS: BP 97/59; PULSE 98; RESP 18; TEMP 36.9
[2024-10-18 16:30] VITALS: BP 110/68; PULSE 94; RESP 20; TEMP 36.7; O2SAT 95
[2024-10-18 20:00] VITALS: BP 120/72; PULSE 22; RESP 22; TEMP 39; O2SAT 95
== END 2024-10-18 21:47 | disposition left against medical advice (07) | DRG 870 ==
LOC: ER 16:55 → MICUSO 20:26 → 8EST 10-12 15:53
PROVIDERS: ADMIT Hospitalist; ATTEND Hospitalist
PROC: 5A1955Z Respiratory Ventilation, Greater than 96 Consecutive Hours (ICD-10-PCS; principal; 2024-10-01)
PROC: 0BH17EZ Insertion of Endotracheal Airway into Trachea, Via Natural or Artificial Opening (ICD-10-PCS; 2024-10-01)
PROC: 30233N1 Transfusion of Nonautologous Red Blood Cells into Peripheral Vein, Percutaneous Approach (ICD-10-PCS; 2024-10-01)
PROC: 02HV33Z Insertion of Infusion Device into Superior Vena Cava, Percutaneous Approach (ICD-10-PCS; 2024-10-02)
PROC: B548ZZA Ultrasonography of Superior Vena Cava, Guidance (ICD-10-PCS; 2024-10-02)
PROC: 5A09357 Assistance with Respiratory Ventilation, Less than 24 Consecutive Hours, Continuous Positive Airway Pressure (ICD-10-PCS; 2024-10-06)
PROC: 5A1955Z Respiratory Ventilation, Greater than 96 Consecutive Hours (ICD-10-PCS; 2024-10-07)
PROC: 5A09357 Assistance with Respiratory Ventilation, Less than 24 Consecutive Hours, Continuous Positive Airway Pressure (ICD-10-PCS; 2024-10-07)
PROC: 0BH17EZ Insertion of Endotracheal Airway into Trachea, Via Natural or Artificial Opening (ICD-10-PCS; 2024-10-07)
DX: A41.9 Sepsis, unspecified organism (principal); G92.8 Other toxic encephalopathy; J69.0 Pneumonitis due to inhalation of food and vomit; J96.01 Acute respiratory failure with hypoxia; I21.A1 Myocardial infarction type 2; N17.0 Acute kidney failure with tubular necrosis; R53.2 Functional quadriplegia; R65.21 Severe sepsis with septic shock; E22.2 Syndrome of inappropriate secretion of antidiuretic hormone; J45.901 Unspecified asthma with (acute) exacerbation; E87.20 Acidosis, unspecified; E27.40 Unspecified adrenocortical insufficiency; E44.0 Moderate protein-calorie malnutrition; K94.23 Gastrostomy malfunction; I13.0 Hypertensive heart and chronic kidney disease with heart failure and stage 1 through stage 4 chronic kidney disease, or unspecified chronic kidney disease; N18.9 Chronic kidney disease, unspecified; D50.9 Iron deficiency anemia, unspecified; E87.5 Hyperkalemia; G20.A1 Parkinson's disease without dyskinesia, without mention of fluctuations; F02.80 Dementia in other diseases classified elsewhere, unspecified severity, without behavioral disturbance, psychotic disturbance, mood disturbance, and anxiety; L89.319 Pressure ulcer of right buttock, unspecified stage; E03.9 Hypothyroidism, unspecified; R65.20 Severe sepsis without septic shock; R73.9 Hyperglycemia, unspecified; D75.838 Other thrombocytosis; B96.89 Other specified bacterial agents as the cause of diseases classified elsewhere; B35.1 Tinea unguium; Z66 Do not resuscitate; J32.9 Chronic sinusitis, unspecified; R13.12 Dysphagia, oropharyngeal phase; D63.8 Anemia in other chronic diseases classified elsewhere; G93.89 Other specified disorders of brain; I50.9 Heart failure, unspecified; I35.1 Nonrheumatic aortic (valve) insufficiency; L89.150 Pressure ulcer of sacral region, unstageable; I44.0 Atrioventricular block, first degree; B95.62 Methicillin resistant Staphylococcus aureus infection as the cause of diseases classified elsewhere; B95.8 Unspecified staphylococcus as the cause of diseases classified elsewhere; Z82.0 Family history of epilepsy and other diseases of the nervous system; Z51.5 Encounter for palliative care; Z86.73 Personal history of transient ischemic attack (TIA), and cerebral infarction without residual deficits; Z74.01 Bed confinement status; Z79.899 Other long term (current) drug therapy; Z87.11 Personal history of peptic ulcer disease; Z88.0 Allergy status to penicillin; Z68.25 Body mass index [BMI] 25.0-25.9, adult; Z53.29 Procedure and treatment not carried out because of patient's decision for other reasons; Y83.3 Surgical operation with formation of external stoma as the cause of abnormal reaction of the patient, or of later complication, without mention of misadventure at the time of the procedure; Y82.8 Other medical devices associated with adverse incidents
CPT/HCPCS: 31500; 31720; 36415; 36573; 36600; 71045; 80048; 80061; 80076; 80202; 80305; 81003; 82024; 82040; 82088; 82140; 82247; 82375; 82533; 82550; 82607; 82728; 82746; 82805; 82962; 83036; 83540; 83550; 83605; 83615; 83735; 83880; 83930; 83935; 84100; 84134; 84145; 84244; 84295; 84300; 84439; 84443; 84478; 84484; 84550; 85014; 85018; 85025; 85027; 85044; 86022; 86376; 86850; 86900; 86920; 87070; 87077; 87186; 93005; 93306; 93970; 94002; 94003; 94070; 94640; 94664; 94760; 95816; 98960; 99291; A4606; A6261; C1725; J0330; J0360; J0456; J1650; J2003; J2060; J2270; J2470; J2704; J2919; J3010; J3370; J3475; J3490; J7030; J7060; P9016